=== PATIENT | female | born 1975 | race African-American/Black ===

== ENCOUNTER 2019-12-19 07:22 | Inpatient (IN) | payer SELFPAY ==
[~2019-12-19] VITALS: Ht 160 cm; Wt 82.6 kg
[2019-12-19] MEDS ORDERED: METHYLERGONOVINE MALEATE 0.2 MG/ML IM PRN (08:30)
[2019-12-19] MEDS ORDERED: MISOPROSTOL 100MCG TABLET VG PRN (08:30)
[2019-12-19] MEDS ORDERED: NALOXONE HCL 0.4 MG/ML 1ML VIAL IM PRN (08:30)
[2019-12-19] MEDS ORDERED: DEXT 5%/LR + PITOCIN 20UNITS/L 1,000 ML IV PRN (08:30)
[2019-12-19] MEDS ORDERED: CITRIC ACID/SODIUM CITRATE SOLN 30ML UDC PO NR (08:30)
[2019-12-19] MEDS ORDERED: CARBOPROST TROMETHAMINE 250 MCG/ML AMPUL IM PRN (08:30)
[2019-12-19] MEDS ORDERED: PHENYLEPHRINE HCL 10 MG/ML 1ML (IV VIAL) IV ONE (08:43)
[2019-12-19] MEDS ORDERED: FENTANYL CITRATE/PF 50MCG/ML 2ML VIAL ONE (08:43)
[2019-12-19] MEDS ORDERED: ONDANSETRON HCL 4MG/2ML INJ ONE (08:43)
[2019-12-19] MEDS ORDERED: EPHEDRINE SULFATE 50MG/ML VIAL ONE (08:43)
[2019-12-19] MEDS ORDERED: CEFAZOLIN SODIUM 1000MG/VIAL ONE (08:43)
[2019-12-19] MEDS ORDERED: MORPHINE SULFATE/PF 1MG/ML 10ML AMP ONE (08:43)
[2019-12-19] MEDS ORDERED: METOCLOPRAMIDE HCL 10MG/2ML VIAL ONE (08:43)
[2019-12-19] MEDS ORDERED: OXYTOCIN 10 UNITS/ML 1ML ONE (08:43)
[2019-12-19] MEDS ORDERED: GLYCOPYRROLATE 0.2 MG/ML 2ML VIAL ONE (08:43)
[2019-12-19 09:07] LABS: CLARITY URINE CLOUDY (CLEAR); COLOR URINE YELLOW (YELLOW); KETONES URINE NEGATIVE (NEGATIVE); LEUKOCYTE ESTERASE URINE NEGATIVE (NEGATIVE); NITRITE URINE NEGATIVE (NEGATIVE); OCCULT BLOOD URINE TRACE (NEGATIVE); PROTEIN URINE TRACE (NEGATIVE); SPECIFIC GRAVITY URINE 1.019 (1.005-1.030)
[2019-12-19 09:17] LABS: BASOPHILS % 0.3 % (0.0-2.0); EOSINOPHILS % 0.6 % (0.0-5.0); HEMATOCRIT. 33.1 % (36.0-48.0); HEMOGLOBIN. 11.4 g/dL (12.0-16.0); LYMPHOCYTES % 30.2 % (20.0-50.0); MEAN CORPUSCULAR HEMOGLOBIN 28.1 pg (28.0-32.0); MEAN CORPUSCULAR VOLUME 81.8 fL (81.0-99.0); MEAN PLATELET VOLUME 10.1 fl (7.4-10.4); MONOCYTES % 8.1 % (2.0-8.0); NEUTROPHILS % 60.8 % (40.0-76.0); PLATELET 193 x1000/uL (130-400); RED BLOOD CELL COUNT 4.04 mill/uL (4.2-5.4); RED CELL DISTRIBUTION WIDTH 15.1 % (11.6-14.6)
[2019-12-19] MEDS: LACTATED RINGERS 1,000 ML IV SCH ×2 (09:18→09:19)
[2019-12-19 09:27] LABS: INR 0.9; PARTIAL THROMBOPLASTIN TIME 26.4 sec (23.4-31.0); PROTHROMBIN TIME 9.3 sec (9.6-11.0)
[2019-12-19] MEDS ORDERED: KETOROLAC 60MG/2ML VIAL IM ONE (10:24)
[2019-12-19] MEDS: DEXT 5%/LR + PITOCIN 20UNITS/L 1,000 ML IV SCH ×2 (11:10→16:13)
[2019-12-19] MEDS ORDERED: HYDROMORPHONE HCL/PF 2MG/ML CPJ IM PRN (11:15)
[2019-12-19] MEDS ORDERED: IBUPROFEN 400MG TABLET PO PRN (11:15)
[2019-12-19] MEDS ORDERED: RHO(D) IMMUNE GLOBULIN 300 MCG/SYR IM PRN (11:15)
[2019-12-19 12:13] LABS: HEMOGLOBIN 8.9 g/dL (12.0-16.0); MEAN CORPUSCULAR HEMOGLOBIN 28.4 pg (28.0-32.0); PLATELET 154 x1000/uL (130-400); RED BLOOD CELL COUNT 3.13 mill/uL (4.2-5.4); RED CELL DISTRIBUTION WIDTH 15.2 % (11.6-14.6)
[2019-12-19 14:00] VITALS: BP 131/72
[2019-12-19 14:30] VITALS: BP 139/75
[2019-12-19 15:16] LABS: HEPATITIS B SURFACE ANTIGEN NEGATIVE
[2019-12-19 15:20] VITALS: BP 129/63
[2019-12-19 16:14] VITALS: BP 133/70
[2019-12-19] MEDS ORDERED: DIPHENHYDRAMINE 50MG/ML VIAL IV PRN ×2 (17:45→18:45)
[2019-12-19] MEDS: KETOROLAC 30MG/ML VIAL IV SCH (17:45)
[2019-12-19] MEDS ORDERED: BUTORPHANOL TARTRATE 2 MG/ML VIAL IV PRN (17:45)
[2019-12-19] MEDS ORDERED: NALOXONE HCL 0.4 MG/ML 1ML VIAL IV PRN (17:45)
[2019-12-19] MEDS ORDERED: ONDANSETRON HCL 4MG/2ML INJ IV PRN (18:45)
[2019-12-19 22:00] VITALS: BP 128/76
[2019-12-20] VITALS: BP 125/71
[2019-12-20] MEDS: DEXT 5%/LR + PITOCIN 20UNITS/L 1,000 ML IV SCH ×2 (00:06→07:26)
[2019-12-20] MEDS: KETOROLAC 30MG/ML VIAL IV SCH (04:01)
[2019-12-20 06:00] VITALS: BP 123/73
[2019-12-20 07:48] LABS: BASOPHILS % 0.4 % (0.0-2.0); EOSINOPHILS % 0.1 % (0.0-5.0); HEMATOCRIT. 24.2 % (36.0-48.0); HEMOGLOBIN. 8.3 g/dL (12.0-16.0); LYMPHOCYTES % 11.8 % (20.0-50.0); MEAN CORPUSCULAR HEMOGLOBIN 28.2 pg (28.0-32.0); MEAN CORPUSCULAR VOLUME 82.3 fL (81.0-99.0); MEAN PLATELET VOLUME 9.7 fl (7.4-10.4); MONOCYTES % 7.2 % (2.0-8.0); NEUTROPHILS % 80.5 % (40.0-76.0); PLATELET 160 x1000/uL (130-400); RED BLOOD CELL COUNT 2.94 mill/uL (4.2-5.4)
[2019-12-20 08:00] VITALS: BP 122/71
[2019-12-20] MEDS: IBUPROFEN 800MG TABLET PO PRN ×2 (10:04→16:42)
[2019-12-20 12:00] VITALS: BP 120/73
[2019-12-20 16:03] VITALS: BP 121/77
[2019-12-20 20:00] VITALS: BP 110/76
[2019-12-21] VITALS: BP 114/72
[2019-12-21 07:30] VITALS: BP 126/59
[2019-12-21] MEDS: IBUPROFEN 800MG TABLET PO PRN (08:01)
[2019-12-21 17:25] VITALS: BP 98/61
[2019-12-21 19:30] VITALS: BP 98/62
[2019-12-22 04:30] VITALS: BP 105/65
[2019-12-22] MEDS ORDERED: FERR325T6 MT (06:57)
[2019-12-22] MEDS ORDERED: PREN-55 MT (06:57)
[2019-12-22] MEDS ORDERED: IBUP-2030 PO (06:57)
[2019-12-22] MEDS: IBUPROFEN 800MG TABLET PO PRN (07:16)
[2019-12-22 07:30] VITALS: BP 135/63
== END 2019-12-22 11:10 | disposition home or self-care (01) | DRG 540 ==
LOC: 8 EST LDRP 07:22 → OBSVTOIN 07:22 → 8EST 13:35
PROVIDERS: ADMIT Obstetrics & Gynecology; ATTEND Obstetrics & Gynecology
PROC: 10D00Z1 Extraction of Products of Conception, Low, Open Approach (ICD-10-PCS; principal; 2019-12-19)
DX: O34.13 Maternal care for benign tumor of corpus uteri, third trimester (principal); D25.0 Submucous leiomyoma of uterus; O32.8XX0 Maternal care for other malpresentation of fetus, not applicable or unspecified; L91.0 Hypertrophic scar; O99.03 Anemia complicating the puerperium; O99.72 Diseases of the skin and subcutaneous tissue complicating childbirth; O69.81X0 Labor and delivery complicated by cord around neck, without compression, not applicable or unspecified; Z3A.39 39 weeks gestation of pregnancy; Z37.0 Single live birth
CPT/HCPCS: 36415; 81003; 85025; 85027; 86592; 86703; 86762; 86850; 86900; 87340; 88307; G0378; J0690; J1885; J2210; J2274; J2370; J2405; J2590; J2765; J3010; J3490; A4315